=== PATIENT | female | born 1975 | race Two or more races ===

== ENCOUNTER 2016-05-25 20:53 | Emergency (ER) | payer OTHER ==
[~2016-05-25] VITALS: Ht 165.1 cm; Wt 83.9 kg
[~2016-05-25 20:53] MED LIST: ASPI81CH39; TRIA25CA
[2016-05-25 22:09] LABS: Urine Bilirubin Negative (Negative); Urine Color Yellow (Yellow); Urine Glucose Normal (Normal); Urine Ketone Negative (Negative); Urine Mucus FEW (None Seen); Urine Nitrite Negative (Negative); Urine RBC 11 /hpf (0 - 4); Urine Squamous Epithelial Cell FEW /hpf (<5); Urine pH 6.5 (5.0-8.0)
[2016-05-25 22:13] LABS: Basophils # (auto) 0 uL; Basophils % (auto) 0.3 % (0.0-2.0); Eosinophils # (auto) 0.3 uL; Eosinophils % (auto) 3.1 % (0.0-7.0); Hematocrit 41.8 % (36.0-46.0); Lymphocytes # (auto) 2.4 uL; Lymphocytes % (auto) 24.6 % (10.0-50.0); Mean Corpuscular Hemoglobin 28.5 pg (28.0-32.0); Mean Corpuscular Hgb Conc. 33.4 g/dL (32.0-36.0); Mean Corpuscular Volume 85.2 fL (80.0-100.0); Mean Platelet Volume 8.8 fL (7.4-10.4); Monocytes # (auto) 0.6 uL; Monocytes % (auto) 6.5 % (0.0-12.0); Neutrophils # (auto) 6.4 uL; Neutrophils % (auto) 65.5 % (37.0-80.0); Platelet Count (auto) 267 10^3/uL (140-450); Red Cell Distribution Width 13.9 % (11.6-16.0); White Blood Cell 9.8 10^3/uL (4.4-10.8)
[2016-05-25 22:20] LABS: Urine Blood 1+ /uL (Negative)
[2016-05-25 22:26] LABS: Albumin 3.6 g/dL (3.4-5.0); Alkaline Phosphatase 61 U/L (45-117); Anion Gap 11 (5-15); Aspartate Aminotransferase 25 U/L (15-37); BUN/Creatinine Ratio 28.1; Bilirubin, Total 0.3 mg/dL (0.2-1.0); Blood Urea Nitrogen 18 mg/dL (7-18); Calcium 8.6 mg/dL (8.5-10.1); Carbon Dioxide 26 mmol/L (21-32); Chloride 108 mmol/L (98-107); GFR African American 132 mL/min; GFR Non-African American 109 mL/min; Glucose 100 mg/dL (74-106); Magnesium 2.3 mg/dL (1.6-2.6); Potassium 3.7 mmol/L (3.5-5.1); Sodium 145 mmol/L (136-145); Total Protein 7.3 g/dL (6.4-8.2)
[2016-05-25 22:37] LABS: B-Type Natriuretic Peptide 10.81 pg/mL (0-100)
[2016-05-25 22:40] LABS: Temperature: 23.5 C (20.0-25.0)
[2016-05-25] MEDS ORDERED: LORazepam 0.5 MG TAB PO ONE (22:45)
[2016-05-25 22:57] LABS: INR 1.02 (0.9-1.15); Partial Thromboplastin Time 28.5 sec (22.64-33.71); Prothrombin Time 10.5 sec (9.37-12.3)
[2016-05-26 01:05] VITALS: BP 132/86
== END 2016-05-26 01:07 | disposition home or self-care (01) ==
LOC: ER 20:56
DX: F41.9 Anxiety disorder, unspecified (principal); R07.9 Chest pain, unspecified; I10 Essential (primary) hypertension; R51 Headache; Z88.1 Allergy status to other antibiotic agents; Z98.51 Tubal ligation status; Z79.82 Long term (current) use of aspirin
CPT/HCPCS: 36415; 70450; 71020; 80053; 81001; 83735; 83880; 84443; 84484; 85025; 85610; 85730; 93005; 99285; G0434

== ENCOUNTER 2020-09-20 11:39 | Emergency (ER) | payer MEDICAID, OTHER ==
[~2020-09-20] VITALS: Ht 165.1 cm; Wt 149.7 kg
[2020-09-20] MEDS ORDERED: SODIUM CHLORIDE 0.9% 500 ML IVB ONE (11:45)
[2020-09-20] MEDS ORDERED: MORPHINE SULFATE 4 MG/ML SYR/VIAL IV ONE (11:45)
[2020-09-20] MEDS ORDERED: PANTOPRAZOLE 40 MG/10 ML VIAL INJ IV ONE (11:45)
[2020-09-20] MEDS ORDERED: ONDANSETRON HCL 4 MG/2 ML VIAL IV ONE (11:45)
[2020-09-20 12:02] LABS: Basophils # (auto) 0.1 10 ^3/uL (0-0.2); Basophils % (auto) 0.6 % (0.0-2.0); Eosinophils # (auto) 0.2 10 ^3/uL (0-0.8); Eosinophils % (auto) 2.4 % (0.0-7.0); Hematocrit 43.4 % (36.0-46.0); Hemoglobin 14.8 g/dL (12.2-16.2); Lymphocytes # (auto) 3.2 10 ^3/uL (0.4-5.4); Mean Corpuscular Hgb Conc. 34.2 g/dL (32.0-36.0); Mean Corpuscular Volume 84.9 fL (80.0-100.0); Monocytes # (auto) 0.7 10 ^3/uL (0-1.3); Monocytes % (auto) 6.5 % (0.0-12.0); Neutrophils # (auto) 6.2 10 ^3/uL (1.6-8.6); Neutrophils % (auto) 59.5 % (37.0-80.0); Red Blood Cells 5.12 10^6/uL (4.0-5.20); Red Cell Distribution Width 13.8 % (11.8-14.3); White Blood Cell 10.4 10^3/uL (4.4-10.8)
[2020-09-20 12:09] VITALS: BP 128/63
[2020-09-20 12:21] LABS: Albumin 3.6 g/dL (3.4-5.0); Anion Gap 4 (5-15); Blood Urea Nitrogen 15 mg/dL (7-18); Calcium 8.5 mg/dL (8.5-10.1); Carbon Dioxide 29 mmol/L (21-32); Chloride 106 mmol/L (98-107); Glucose 94 mg/dL (74-106); Lipase 145 U/L (73-393); Potassium 3.9 mmol/L (3.5-5.1); Sodium 139 mmol/L (136-145)
[2020-09-20 12:27] LABS: Alanine Aminotransferase 78 U/L (13-56); Alkaline Phosphatase 75 U/L (45-117); Aspartate Aminotransferase 44 U/L (15-37); BUN/Creatinine Ratio 22.4; Bilirubin, Total 0.4 mg/dL (0.2-1.0); GFR African American 123 mL/min; GFR Non-African American 102 mL/min; Total Protein 7.9 g/dL (6.4-8.2)
== END 2020-09-20 13:08 | disposition home or self-care (01) ==
LOC: ER 11:39
DX: K29.00 Acute gastritis without bleeding (principal); I10 Essential (primary) hypertension; Z90.49 Acquired absence of other specified parts of digestive tract; Z90.89 Acquired absence of other organs; Z79.899 Other long term (current) drug therapy; Z79.82 Long term (current) use of aspirin; Z88.1 Allergy status to other antibiotic agents; Z20.822 Contact with and (suspected) exposure to COVID-19
CPT/HCPCS: 36415; 74176; 80053; 83690; 84484; 85025; 87426; 93005; 96361; 96374; 96375; 99285; C9113; J2270; J2405; J7040

== ENCOUNTER 2021-05-03 07:55 | Emergency (ER) | payer MEDICAID ==
[~2021-05-03] VITALS: Ht 165.1 cm; Wt 147.4 kg
[2021-05-03 10:10] VITALS: BP 121/76
[2021-05-03] MEDS ORDERED: IBUP800T27 PO (10:16)
[2021-05-03] MEDS ORDERED: CYCL-837 PO (10:16)
== END 2021-05-03 10:50 | disposition home or self-care (01) ==
LOC: ER 07:55
DX: S20.212A Contusion of left front wall of thorax, initial encounter (principal); I10 Essential (primary) hypertension; E03.9 Hypothyroidism, unspecified; Z90.49 Acquired absence of other specified parts of digestive tract; Z90.89 Acquired absence of other organs; Z79.82 Long term (current) use of aspirin; Z79.1 Long term (current) use of non-steroidal anti-inflammatories (NSAID); Z79.899 Other long term (current) drug therapy; Z88.8 Allergy status to other drugs, medicaments and biological substances; X58.XXXA Exposure to other specified factors, initial encounter; Y93.89 Activity, other specified; Y92.89 Other specified places as the place of occurrence of the external cause; Y99.8 Other external cause status
CPT/HCPCS: 71250

== ENCOUNTER 2021-09-24 12:35 | Inpatient (IN) | payer MEDICAID ==
[~2021-09-24] VITALS: Ht 165.1 cm; Wt 147.5 kg
[~2021-09-24 12:35] MED LIST changes: +CYCL-837 PO; +IBUP800T27 PO
[2021-09-24] MEDS ORDERED: CLINDAMYCIN 600MG IV 50 ML IV ONE (13:30)
[2021-09-24] MEDS ORDERED: SODIUM CHLORIDE 0.9% 500 ML IV ONE (13:30)
[2021-09-24] MEDS ORDERED: MORPHINE SULFATE 4 MG/ML SYR/VIAL IV ONE (13:30)
[2021-09-24] MEDS ORDERED: ONDANSETRON HCL 4 MG/2 ML VIAL IM ONE (13:30)
[2021-09-24 13:56] LABS: Basophils # (auto) 0 10 ^3/uL (0-0.2); Basophils % (auto) 0.3 % (0.0-2.0); Eosinophils # (auto) 0 10 ^3/uL (0-0.8); Eosinophils % (auto) 0.1 % (0.0-7.0); Hematocrit 44.4 % (36.0-46.0); Hemoglobin 14.7 g/dL (12.2-16.2); Lymphocytes % (auto) 9.6 % (10.0-50.0); Mean Corpuscular Hemoglobin 28.3 pg (28.0-32.0); Mean Corpuscular Volume 85.7 fL (80.0-100.0); Monocytes # (auto) 0.5 10 ^3/uL (0-1.3); Monocytes % (auto) 5.1 % (0.0-12.0); Neutrophils # (auto) 9.1 10 ^3/uL (1.6-8.6); Neutrophils % (auto) 84.9 % (37.0-80.0); Nucleated Red Blood Cells % 0.1 %; Red Blood Cells 5.19 10^6/uL (4.0-5.20); Red Cell Distribution Width 14.2 % (11.8-14.3); White Blood Cell 10.7 10^3/uL (4.4-10.8)
[2021-09-24 14:14] LABS: Albumin 3.4 g/dL (3.4-5.0); Calcium 8.4 mg/dL (8.5-10.1); Potassium 3.8 mmol/L (3.5-5.1)
[2021-09-24 14:16] LABS: BUN/Creatinine Ratio 13.2
[2021-09-24 14:22] LABS: Bilirubin, Total 0.8 mg/dL (0.2-1.0); Total Protein 7.3 g/dL (6.4-8.2)
[2021-09-24] MEDS ORDERED: ACETAMINOPHEN 325 MG TAB PO ONE (15:30)
[2021-09-24] MEDS ORDERED: IBUPROFEN 400 MG TAB PO ONE (17:00)
[2021-09-24] MEDS ORDERED: MORPHINE SULFATE INJ 2 MG/ml SYRG IV PRN (19:15)
[2021-09-24 19:51] LABS: Cholesterol 170 mg/dL (< 200); HDL Cholesterol 51 mg/dL (40-59); LDL Cholesterol 113 mg/dL (< 100); Triglycerides 87 mg/dL (< 150)
[2021-09-24] MEDS: CLINDAMYCIN 600MG IV 50 ML IV SCH (22:27)
[2021-09-25] MEDS ORDERED: LEVO175T66 PO (01:37)
[2021-09-25] MEDS ORDERED: LISI-716 PO (01:37)
[2021-09-25 01:39] VITALS: BP 116/63
[2021-09-25] MEDS ORDERED: ACETAMINOPHEN 325 MG TAB PO ONE (04:15)
[2021-09-25 05:00] VITALS: BP 106/57
[2021-09-25 06:22] LABS: Basophils # (auto) 0 10 ^3/uL (0-0.2); Basophils % (auto) 0.2 % (0.0-2.0); Eosinophils # (auto) 0 10 ^3/uL (0-0.8); Eosinophils % (auto) 0.1 % (0.0-7.0); Hematocrit 42.9 % (36.0-46.0); Hemoglobin 14.3 g/dL (12.2-16.2); Lymphocytes # (auto) 0.7 10 ^3/uL (0.4-5.4); Lymphocytes % (auto) 7.2 % (10.0-50.0); Mean Corpuscular Hemoglobin 28.6 pg (28.0-32.0); Mean Corpuscular Hgb Conc. 33.4 g/dL (32.0-36.0); Mean Corpuscular Volume 85.4 fL (80.0-100.0); Monocytes # (auto) 0.5 10 ^3/uL (0-1.3); Monocytes % (auto) 5.1 % (0.0-12.0); Neutrophils # (auto) 8.7 10 ^3/uL (1.6-8.6); Neutrophils % (auto) 87.4 % (37.0-80.0); Nucleated Red Blood Cells % 0.2 %; Red Blood Cells 5.02 10^6/uL (4.0-5.20)
[2021-09-25 06:52] LABS: Urine Bacteria MOD /hpf (None Seen); Urine Blood 2+ /uL (Negative); Urine Mucus FEW (None Seen); Urine WBC 8 /hpf (0 - 5)
[2021-09-25 06:58] LABS: Potassium 3.8 mmol/L (3.5-5.1)
[2021-09-25 07:03] LABS: Albumin 3.3 g/dL (3.4-5.0); BUN/Creatinine Ratio 17.1; Calcium 8.1 mg/dL (8.5-10.1); Total Protein 7.1 g/dL (6.4-8.2)
[2021-09-25 07:06] LABS: Bilirubin, Total 0.6 mg/dL (0.2-1.0)
[2021-09-25] MEDS: CLINDAMYCIN 600MG IV 50 ML IV SCH (07:43)
[2021-09-25 07:50] VITALS: BP 114/60
[2021-09-25] MEDS: ENOXAPARIN SOD 40 MG/0.4 ML SYRINGE SC SCH (10:59)
[2021-09-25 12:25] VITALS: BP 110/57
[2021-09-25] MEDS ORDERED: VANCOMYCIN PER PHARMACY 0 MG IV SCH (14:00)
[2021-09-25] MEDS ORDERED: VANCOMYCIN 1GM/250ML 250 ML IV ONE (14:00)
[2021-09-25] MEDS: ACETAMINOPHEN 325 MG TAB PO PRN (15:07)
[2021-09-25 17:00] VITALS: BP 97/55
[2021-09-25] MEDS: BUMETANIDE 2.5mg/10ml (0.25 mg/ml) INJ IV SCH (18:29)
[2021-09-25] MEDS: VANCOMYCIN 1GM/250ML 250 ML IV SCH (21:30)
[2021-09-25] MEDS: POTASSIUM CHL 10 Meq TABLET PO SCH (21:31)
[2021-09-25 22:00] VITALS: BP 110/57
[2021-09-26 05:23] VITALS: BP 124/61
[2021-09-26] MEDS: VANCOMYCIN 1GM/250ML 250 ML IV SCH ×3 (05:39→20:07)
[2021-09-26] MEDS: BUMETANIDE 2.5mg/10ml (0.25 mg/ml) INJ IV SCH ×2 (05:39→18:39)
[2021-09-26] MEDS: ACETAMINOPHEN 325 MG TAB PO PRN (06:08)
[2021-09-26 06:49] LABS: BUN/Creatinine Ratio 12.9; Calcium 8.2 mg/dL (8.5-10.1); Potassium 3.6 mmol/L (3.5-5.1)
[2021-09-26 08:00] VITALS: BP 127/73
[2021-09-26 08:19] VITALS: BP 127/73
[2021-09-26] MEDS: POTASSIUM CHL 10 Meq TABLET PO SCH ×2 (11:08→22:03)
[2021-09-26] MEDS: ENOXAPARIN SOD 40 MG/0.4 ML SYRINGE SC SCH (11:08)
[2021-09-26 12:57] VITALS: BP 122/59
[2021-09-26 16:43] VITALS: BP 116/63
[2021-09-26 23:29] VITALS: BP 109/39
[2021-09-27] MEDS: VANCOMYCIN 1GM/250ML 250 ML IV SCH ×2 (01:36→08:07)
[2021-09-27 03:54] VITALS: BP 113/68
[2021-09-27 05:15] LABS: BUN/Creatinine Ratio 12.1; Calcium 8.4 mg/dL (8.5-10.1); Phosphorus 3.3 mg/dL (2.5-4.90); Potassium 3.6 mmol/L (3.5-5.1)
[2021-09-27] MEDS: BUMETANIDE 2.5mg/10ml (0.25 mg/ml) INJ IV SCH (05:33)
[2021-09-27 08:00] VITALS: BP 118/52
[2021-09-27 09:00] VITALS: BP 116/52
[2021-09-27] MEDS ORDERED: SULF400T11 PO (09:21)
[2021-09-27] MEDS ORDERED: TRIA37.55 PO (09:21)
[2021-09-27] MEDS ORDERED: DOXY-338 PO (09:21)
[2021-09-27] MEDS: POTASSIUM CHL 10 Meq TABLET PO SCH (09:31)
[2021-09-27] MEDS: ENOXAPARIN SOD 40 MG/0.4 ML SYRINGE SC SCH (09:32)
[2021-09-27 12:12] VITALS: BP 116/52
[2021-09-27 13:00] VITALS: BP 129/87
== END 2021-09-27 14:15 | disposition home or self-care (01) | DRG 383 ==
LOC: ER 12:35 → OVERFLOW 19:08 → WEST WING 09-25 00:35
PROVIDERS: ADMIT Registered Nurse; ATTEND Hospitalist
DX: L03.116 Cellulitis of left lower limb (principal); Z68.43 Body mass index [BMI] 50.0-59.9, adult; E03.9 Hypothyroidism, unspecified; E66.01 Morbid (severe) obesity due to excess calories; F41.9 Anxiety disorder, unspecified; I10 Essential (primary) hypertension; Z20.822 Contact with and (suspected) exposure to COVID-19; Z88.8 Allergy status to other drugs, medicaments and biological substances; Z90.49 Acquired absence of other specified parts of digestive tract; Z82.49 Family history of ischemic heart disease and other diseases of the circulatory system; Z85.850 Personal history of malignant neoplasm of thyroid
CPT/HCPCS: 36415; 80048; 80053; 80061; 80069; 80202; 81001; 83036; 84443; 85025; 85652; 93971; 96365; 96366; 96372; 96375; G0378; J2405; J3490

== ENCOUNTER 2022-03-17 11:20 | Emergency (ER) | payer MEDICAID ==
[~2022-03-17] VITALS: Ht 165.1 cm; Wt 143.5 kg
[~2022-03-17 11:20] MED LIST changes: +DOXY-338 PO; +LEVO175T66 PO; +LISI-716 PO; +SULF400T11 PO; -TRIA25CA; +TRIA37.55 PO
[2022-03-17 11:57] VITALS: BP 156/92
[2022-03-17] MEDS ORDERED: KETOROLAC TROMETH 60MG/2ML VIAL IM ONE (12:15)
[2022-03-17] MEDS ORDERED: TRAM-297 PO (13:30)
[2022-03-17] MEDS ORDERED: PRED20TA2 PO (13:30)
== END 2022-03-17 13:45 | disposition home or self-care (01) ==
LOC: ER 11:20
DX: M17.11 Unilateral primary osteoarthritis, right knee (principal); E66.01 Morbid (severe) obesity due to excess calories; Z68.43 Body mass index [BMI] 50.0-59.9, adult
CPT/HCPCS: 73562; 96372; 99283; J1885